=== PATIENT | male | born 1940 | race Two or more races ===

== ENCOUNTER 2024-01-14 14:27 | Emergency (ER) | payer MEDICARE, OTHER ==
[~2024-01-14] VITALS: Ht 185.4 cm; Wt 91.0 kg
[2024-01-14 14:31] VITALS: O2SAT 99
[2024-01-14 14:45] VITALS: BP 133/74; PULSE 71; RESP 14; TEMP 97.9
[2024-01-14] MEDS: SODIUM CHLORIDE 0.9% 1,000 ML IV ONE (15:22)
[2024-01-14 16:14] LABS: BASOPHILS % 0.4 % (0.0-2.0); EOSINOPHILS % 0.9 % (0.0-5.0); HEMATOCRIT. 41.3 % (42.0-52.0); HEMOGLOBIN. 13.6 g/dL (14.0-18.0); LYMPHOCYTES % 26.6 % (20.0-50.0); MEAN CORPUSCULAR HEMOGLOBIN 29.3 pg (28.0-32.0); MEAN CORPUSCULAR VOLUME 88.8 fL (80.0-94.0); MEAN PLATELET VOLUME 8.8 fl (7.4-10.4); MONOCYTES % 12.5 % (2.0-8.0); NEUTROPHILS % 59.6 % (40.0-76.0); PLATELET 161 x1000/uL (130-400); RED BLOOD CELL COUNT 4.65 mill/uL (4.7-6.1); RED CELL DISTRIBUTION WIDTH 13.2 % (11.6-14.6); WHITE BLOOD COUNT 3.4 x1000/uL (4.5-11.0)
[2024-01-14 16:20] LABS: CARBON DIOXIDE 30 mEq/L (21-32); CHLORIDE 106 mEq/L (98-107); POTASSIUM 4.6 mEq/L (3.5-5.1); SODIUM 141 mEq/L (136-145)
[2024-01-14 16:21] LABS: CALCIUM 8.9 mg/dL (8.7-10.4)
[2024-01-14 16:25] LABS: CREATININE 1.3 mg/dL (0.6-1.3)
[2024-01-14 16:26] LABS: GLUCOSE 96 mg/dL (70-105); UREA NITROGEN BLOOD 12 mg/dL (9-23)
[2024-01-14 16:27] LABS: TROPONIN I HIGH SENSITIVITY 5 ng/L (3.0-53)
[2024-01-14 16:28] LABS: ALANINE AMINOTRANSFERASE 10 IU/L (10-49); ASPARTATE AMINOTRANSFERASE 32 IU/L (<34); BILIRUBIN DIRECT 0.2 mg/dL (<=3.0); BILIRUBIN TOTAL 0.7 mg/dL (0.1-1.0); PROTEIN TOTAL 6.7 g/dL (6.0-8.3)
== END 2024-01-14 18:43 | disposition home or self-care (01) ==
LOC: ER 14:27
DX: R55 Syncope and collapse (principal); I10 Essential (primary) hypertension
CPT/HCPCS: 80076; 80048; 83605; 85025; 84484; 36415; 71045; 93005; 96360; 99285; J7030; Z7610 ×2

== ENCOUNTER 2025-01-31 14:49 | Emergency (ER) | payer MEDICARE, OTHER ==
[~2025-01-31] VITALS: Ht 180.3 cm; Wt 120.0 kg
[2025-01-31 15:17] VITALS: O2SAT 97
[2025-01-31] MEDS: BACITRACIN ZINC OINT UDPKT TOP ONE (15:45)
[2025-01-31] MEDS: LIDOCAINE HCL/PF 1% 10 MG/ML 5ML VIAL INFIL ONE (15:45)
[2025-01-31] MEDS: ACETAMINOPHEN 325MG TABLET PO ONE (16:52)
[2025-01-31] MEDS: TETANUS, DIPHTHERIA, PERTUSSIS VAC/PF 0.5ML (>10YR OLD) IM ONE (16:54)
[2025-01-31] MEDS ORDERED: BO1 TP (17:34)
[2025-01-31 18:09] VITALS: BP 125/72; PULSE 66; RESP 16; TEMP 36.8; O2SAT 97
== END 2025-01-31 18:17 | disposition home or self-care (01) ==
LOC: ER 14:49
DX: S01.01XA Laceration without foreign body of scalp, initial encounter (principal); I10 Essential (primary) hypertension; H40.9 Unspecified glaucoma; R51.9 Headache, unspecified; Z86.73 Personal history of transient ischemic attack (TIA), and cerebral infarction without residual deficits; Z98.890 Other specified postprocedural states; X58.XXXA Exposure to other specified factors, initial encounter; Y93.89 Activity, other specified; Y92.89 Other specified places as the place of occurrence of the external cause; Y99.8 Other external cause status
CPT/HCPCS: 99285; 70450; 90715; 12002; 90471; J2003

== ENCOUNTER 2025-02-02 10:28 | Emergency (ER) | payer MEDICARE, OTHER ==
[~2025-02-02] VITALS: Ht 172.7 cm; Wt 100.0 kg
[~2025-02-02 10:28] MED LIST: BO1 TP
[2025-02-02 10:33] VITALS: O2SAT 99
[2025-02-02 10:35] VITALS: BP 127/72; PULSE 81; RESP 16; TEMP 36.7; O2SAT 100
== END 2025-02-02 10:45 | disposition home or self-care (01) ==
LOC: ER 10:28
DX: S01.01XD Laceration without foreign body of scalp, subsequent encounter (principal); I10 Essential (primary) hypertension; Z48.00 Encounter for change or removal of nonsurgical wound dressing; Z98.890 Other specified postprocedural states; X58.XXXD Exposure to other specified factors, subsequent encounter
CPT/HCPCS: 99281; 99282